=== PATIENT | female | born 1995 | race Caucasian/White ===

== ENCOUNTER 2024-04-01 08:59 | Day surgery (SDC) | payer BC ==
[2024-03-28 09:39] VITALS: BMI 23.1
[2024-04-01 11:01] VITALS: RESP 12
[2024-04-01 11:14] VITALS: TEMP 98.1
[2024-04-01 11:16] VITALS: BP 99/56; PULSE 65
== END 2024-04-01 11:16 | disposition home or self-care (01) ==
LOC: FASU-ENDO 08:59
PROVIDERS: ATTEND Internal Medicine Gastroenterology
PROC: 0DB68ZX Excision of Stomach, Via Natural or Artificial Opening Endoscopic, Diagnostic (ICD-10-PCS; 2024-04-01)
PROC: 0DB98ZX Excision of Duodenum, Via Natural or Artificial Opening Endoscopic, Diagnostic (ICD-10-PCS; principal; 2024-04-01 10:37)
DX: K29.50 Unspecified chronic gastritis without bleeding (principal); R10.13 Epigastric pain
CPT/HCPCS: 81025; 88305-TC; 88342-TC